=== PATIENT | female | born 1990 | race Caucasian/White ===

== ENCOUNTER → 2020-02-02 13:09 | Outpatient (CLI) | payer OTHER, SELFPAY ==
--- NOTE | 2020-02-02 | DI.US.S_ITS ---
ULTRASOUND GUIDED BIOPSY RIGHT BREAST: 02/02/2020 CLINICAL: Right breast mass. PATIENT CONSENT: Risks (minor bleeding, infection, vasovagal reaction and repeat procedure), benefits and alternatives were explained to the patient and written informed consent was obtained. Correlation is made to exam dated: 12/10/2019 mammogram - [facility]. An ultrasound guided biopsy using real-time ultrasound was performed for the 1.3 cm x 0.9 cm x 0.7 cm oval mass located in the right breast at 9 o'clock posterior depth 8 cm from the nipple. This was described on the previous ultrasound report. The skin was prepped in the usual manner. Local anesthetic was administered to the access site. The abnormality was approached from the lateral aspect. An 18 gauge biopsy needle was placed adjacent to the abnormality under ultrasound guidance. Once the needle was documented to be in the correct location, five specimens were obtained using an Achieve automated firing device. A sterile dressing was applied to the access site. The specimens were sent to the laboratory for pathological analysis. IMPRESSION: ULTRASOUND GUIDED BIOPSY BENIGN Ultrasound guided biopsy of the 1.3 cm x 0.9 cm x 0.7 cm mass in the right breast posterior depth was successful. Pathology indicates benign fibroadenoma (FA). Pathology results are concordant with imaging findings. This exam was interpreted at Station ID: [id number]. Benito ferrer jr/:02/08/2020 16:13:48
--- NOTE | 2020-02-02 | PATH_ITS ---
[facility] Accession Number: [id number] . 01 Material submitted: . breast - RIGHT BREAST MASS 9:30 [id number] . 01 Clinical history: . RACHANA . 02 Diagnosis: Right Breast Mass 9:30, 8 cm from Nipple, Needle Core Biopsy: Histologic features consistent with fibroadenoma. There is no evidence of epithelial atypia or malignancy. [facility] 02/04/2020 1216 Local . 02 Electronically signed: . Florence Gastelum MD, Pathologist NPI- [id number] . 01 Gross description: . Received one formalin-filled container, labeled with the patient's name and designated right breast mass 9:30, 8 cm FN, are three 0.2 cm in diameter, light bower, cylindrical-shaped portions of tissue which range in length from 0.7 cm to 0.8 cm. The specimen is entirely submitted in one cassette. No collection date or time per container. Possible collection date and time per requisition 02/02/20 at 1431. Total fixation time approximately 32 hours. ([id number]) /[facility] 02/04/2020 0221 Local . 02 Pathologist provided ICD-10: D24.1 . 02 CPT . 981141 Performed at: 01 [facility] [address], [place], [place] [id number] MD Abilio Diaz MD Phone: [phone] Performed at: 02 [facility] [address] [place], [place] [id number] MD Evelyn Calhoun MD Phone: [phone]
== END ==
PROVIDERS: Referring Provider General Practice; Visit Provider General Practice
DX: D24.1 Benign neoplasm of right breast (principal)
CPT/HCPCS: 19083